=== PATIENT | female | born 1955 | race Caucasian/White ===

== ENCOUNTER 2018-01-23 02:30 | Emergency (ER) | payer MEDICAID ==
[~2018-01-23] VITALS: Ht 154.9 cm; Wt 83.0 kg
[~2018-01-23 02:30] MED LIST: ASPI81TA2 PO; ATEN-41 PO; DIPH25CA83 PO; FLUO40CA8 PO; GABA-531 PO; HYDR-4100 PO; HYDR25TA4 PO; IBUP-1969 PO; INSU100V32 SUBCUT; LOSA25TA3 PO; MECL-110 PO; NPH,100V SUBCUT; RANI150T8 PO; SIMV10TA2 PO; SIMV10TA6 PO
[2018-01-23 02:42] VITALS: BP_SYST 143
[2018-01-23] MEDS ORDERED: METF1000 PO (02:55)
[2018-01-23] MEDS ORDERED: LOSA50TA3 PO (02:55)
[2018-01-23] MEDS ORDERED: GLIP10TA11 PO (02:55)
[2018-01-23] MEDS ORDERED: LIP40 PO (02:55)
[2018-01-23] MEDS ORDERED: SITA100T7 PO (02:55)
[2018-01-23] MEDS ORDERED: ARIP2TAB9 PO (02:59)
[2018-01-23] MEDS ORDERED: ESCI10TA PO (02:59)
[2018-01-23] MEDS ORDERED: NS 500 ML IV ONE (03:00)
[2018-01-23] MEDS ORDERED: NACL 0.9% 500 ML IV ONE (03:00)
[2018-01-23] MEDS ORDERED: PANTOPRAZOLE SODIUM 40 MG/VIAL (PROTONIX) IVP ONE (03:00)
[2018-01-23] MEDS ORDERED: ONDANSETRON HCL 4 MG/2 ML VIAL IVP ONE (03:00)
[2018-01-23] MEDS ORDERED: KETOROLAC TROMETHAMINE 30 MG VIAL IVP ONE (03:00)
[2018-01-23 03:31] LABS: BASOPHILS # (AUTO) 0.1 K/uL (0.0-0.2); BASOPHILS % (AUTO) 0.5 % (0.0-2.0); EOSINOPHILS # (AUTO) 0.2 K/uL (0.0-0.4); EOSINOPHILS % (AUTO) 1.7 % (0.0-4.0); HEMATOCRIT 42.3 % (36-48); HEMOGLOBIN 14.6 g/dL (12.0-16.0); LYMPHOCYTES # (AUTO) 1.5 K/uL (1.0-5.5); LYMPHOCYTES % (AUTO) 12.9 % (20.5-51.5); MEAN CORPUSCULAR HEMOGLOBIN 31 pg (27-31); MEAN CORPUSCULAR HGB CONC 35 % (32-36); MEAN CORPUSCULAR VOLUME 89 fL (79.0-98.0); MONOCYTES # (AUTO) 0.7 K/uL (0.0-1.0); MONOCYTES % (AUTO) 6.1 % (1.7-9.3); NEUTROPHILS # (AUTO) 9.4 K/uL (1.8-7.7); NEUTROPHILS % (AUTO) 78.8 % (40.0-70.0); PLATELET COUNT (AUTO) 330 K/uL (130-430); RED BLOOD CELL COUNT(AUTO) 4.78 MIL/uL (4.2-6.2); RED CELL DISTRIBUTION WIDTH 12.5 % (9.0-15.0); WHITE BLOOD COUNT (AUTO) 11.9 K/uL (4.8-10.8)
[2018-01-23 03:44] LABS: CALCIUM 9.9 mg/dL (8.4-11.0); CREATININE 1.54 mg/dL (0.55-1.30); POTASSIUM 3.4 mmol/L (3.5-5.1)
[2018-01-23 03:50] LABS: ALBUMIN 3.7 g/dL (3.4-4.8); TOTAL BILIRUBIN 0.7 mg/dL (0.0-1.0)
[2018-01-23] MEDS ORDERED: NACL 0.9% 2,000 ML IV ONE (04:15)
[2018-01-23] MEDS ORDERED: KCL 20 mEq in 100 mL (PREMIX) 100 ML IV ONE (04:45)
[2018-01-23] MEDS ORDERED: INSULIN REGULAR, HUMAN 10 UNITS/0.1 ML INJ IVP ONE (04:45)
[2018-01-23] MEDS ORDERED: POTASSIUM CHLORIDE 10 MEQ TAB.PRT.SR PO ONE (05:15)
[2018-01-23 06:24] VITALS: BP_SYST 134
== END 2018-01-23 06:34 | disposition home or self-care (01) ==
LOC: SED 02:30
DX: E11.65 Type 2 diabetes mellitus with hyperglycemia (principal); J45.909 Unspecified asthma, uncomplicated; I12.9 Hypertensive chronic kidney disease with stage 1 through stage 4 chronic kidney disease, or unspecified chronic kidney disease; N18.9 Chronic kidney disease, unspecified; Z91.041 Radiographic dye allergy status
CPT/HCPCS: 36415; 71045; 74176; 80053; 83605; 83690; 84484; 85025; 85610; 85730; 87040; 93005; 96360; 96361; 96365; 96375; 99285; C9113; J1885; J2405; J3480; J7030; J1815

== ENCOUNTER 2018-06-07 04:54 | Inpatient (IN) | payer MEDICAID ==
[~2018-06-07] VITALS: Ht 154.9 cm; Wt 77.6 kg
[~2018-06-07 04:54] MED LIST changes: +ARIP2TAB3 PO; -ASPI81TA2 PO; -ATEN-41 PO; -DIPH25CA83 PO; +ESCI10TA PO; -FLUO40CA8 PO; -HYDR-4100 PO; -IBUP-1969 PO; -INSU100V32 SUBCUT; +LIP40 PO; -LOSA25TA3 PO; +LOSA50TA3 PO; -MECL-110 PO; +METF1000 PO; -NPH,100V SUBCUT; -RANI150T8 PO; -SIMV10TA2 PO; -SIMV10TA6 PO; +SITA100T11 PO
[2018-06-07 05:00] VITALS: BP_SYST 131
--- NOTE | 2018-06-07 05:00 | NUR ---
Patient to ER bed 8 to gown for evaluation. Side rails up. Report given to JARAD CAREY.
--- NOTE | 2018-06-07 05:05 | NUR ---
Patient AOx4, ambulatory, presents to ER with complaint of rapid heart rate x1 hour ago. Patient states she feels dizzy. Patient states she medicated with Cardizem 180mg but was ineffective. HR 178 at this time. Patient has hx of A-fib, HTN, depression, bipolar, manic depression, DM, CKD, asthma, and hypothyroidism.
--- NOTE | 2018-06-07 05:10 | NUR ---
ER MD Juarez at bedside for medical evaluation.
[2018-06-07] MEDS ORDERED: NACL 0.9% 1,000 ML IV ONE ×2 (05:12→06:30)
[2018-06-07] MEDS ORDERED: DILTIAZEM HCL 25 MG/5 ML VIAL IVP ONE ×2 (05:15→06:15)
[2018-06-07] MEDS ORDERED: ASPIRIN 81 MG TAB.CHEW PO ONE (05:15)
--- NOTE | 2018-06-07 05:30 | NUR ---
# 20 gauge angiocath placed to LAC. Use of asceptic technique. Opsite placed over site. Blood return noted. Flushed with 10 cc of normal saline. No evidence of infiltration noted. Patient tolerated well.
[2018-06-07 06:20] LABS: ANION GAP 10 (5-15); BASOPHILS # (AUTO) 0.1 K/uL (0.0-0.2); BASOPHILS % (AUTO) 0.8 % (0.0-2.0); CALCIUM 9.5 mg/dL (8.4-11.0); CHLORIDE 89 mmol/L (98-107); CREATININE 1.84 mg/dL (0.55-1.30); EOSINOPHILS # (AUTO) 0.1 K/uL (0.0-0.4); EOSINOPHILS % (AUTO) 1.9 % (0.0-4.0); HEMATOCRIT 41.3 % (36-48); HEMOGLOBIN 13.7 g/dL (12.0-16.0); LYMPHOCYTES # (AUTO) 2.9 K/uL (1.0-5.5); LYMPHOCYTES % (AUTO) 36.9 % (20.5-51.5); MEAN CORPUSCULAR HEMOGLOBIN 30 pg (27-31); MEAN CORPUSCULAR HGB CONC 33 % (32-36); MEAN CORPUSCULAR VOLUME 92 fL (79.0-98.0); MONOCYTES # (AUTO) 0.7 K/uL (0.0-1.0); MONOCYTES % (AUTO) 8.9 % (1.7-9.3); NEUTROPHILS % (AUTO) 51.5 % (40.0-70.0); PLATELET COUNT (AUTO) 423 K/uL (130-430); POTASSIUM 3.4 mmol/L (3.5-5.1); RED BLOOD CELL COUNT(AUTO) 4.52 MIL/uL (4.2-6.2); RED CELL DISTRIBUTION WIDTH 11.8 % (9.0-15.0); SODIUM SERUM 127 mmol/L (136-145); UREA NITROGEN, BLOOD 23 mg/dL (8-21); WHITE BLOOD COUNT (AUTO) 7.8 K/uL (4.8-10.8)
[2018-06-07 06:26] LABS: PROTHROMBIN TIME 9.9 SECS (9.5-12.5)
[2018-06-07] MEDS ORDERED: INSULIN REGULAR, HUMAN 10 UNITS/0.1 ML INJ IVP ONE (06:30)
[2018-06-07 06:32] LABS: ALANINE AMINOTRANSFERASE 24 U/L (12-78); ALBUMIN 3.5 g/dL (3.4-4.8); ASPARTATE AMINOTRANSFERASE 13 U/L (10-37); GFR AFRICAN AMERICAN 36 mL/min (>90); TOTAL BILIRUBIN 0.5 mg/dL (0.0-1.0)
[2018-06-07 06:33] LABS: GLUCOSE 765 mg/dL (70-99)
--- NOTE | 2018-06-07 07:00 | NUR ---
End of life care decisions discussed with patient by Dr. Juarez. Opportunity for questions and concerns addressed. Patient's code status is FULL CODE, paperwork completed and placed in chart.
[2018-06-07] MEDS ORDERED: LOSA25TA3 PO (07:12)
[2018-06-07] MEDS ORDERED: DIPH25CA83 PO (07:12)
[2018-06-07] MEDS ORDERED: LEVO25TA7 PO (07:12)
[2018-06-07] MEDS ORDERED: DILT180C69 PO (07:12)
[2018-06-07] MEDS ORDERED: GLIP-214 PO (07:12)
[2018-06-07] MEDS ORDERED: ARIP10TA9 PO (07:12)
[2018-06-07] MEDS ORDERED: RANI-362 PO (07:12)
[2018-06-07] MEDS ORDERED: BUSP10TA3 PO (07:12)
[2018-06-07] MEDS ORDERED: DIPH50CA38 PO (07:12)
[2018-06-07] MEDS ORDERED: ASA81 PO (07:12)
[2018-06-07] MEDS ORDERED: SITA100T11 PO (07:12)
[2018-06-07] MEDS ORDERED: ESCI10TA PO (07:12)
--- NOTE | 2018-06-07 07:12 | NUR ---
Medication reconciliation completed with information provided by patient. Any prior medication reconciliation on file was reviewed and corrected.
--- NOTE | 2018-06-07 07:13 | NUR ---
Patient will be admitted to care of Dr. Angel. Admitted to Tele unit. Will go to room 135. Belongings list completed. Summary report printed. Report will be given at bedside.
[2018-06-07 07:24] VITALS: BP_SYST 134
--- NOTE | 2018-06-07 07:27 | NUR ---
Admission: Received from ER on a gurney wit the diagnosis of uncontrolled diabetes and rapid heart rate. Able to transfer from [facility] to the bed with steady gait . Denies dizziness. Blood sugar recheck at the bedside with BS= 524. Oriented to room routine, call light within reach.
--- NOTE | 2018-06-07 07:48 | NUR ---
CONSULT CARDIOLOGY RAPID HEART BEAT DR FELIPE [phone] S/W GENARO DERAS @ [phone]
--- NOTE | 2018-06-07 08:30 | NUR ---
INITIAL NOTE RECEIVED PT IN BED, NO S/S OF DISTRESS OR SOB NOTED, PT HAS NO C/O PAIN AT THIS TIME, PT IN STABLE CONDITION, PT AAOX4, VERBAL. IV CATHETER PATENT, NO SIGNS OF INFECTION OR INFILTRATION NOTED. SAFETY PRECAUTIONS IN PLACE, BED AT LOWEST POSITION, CALL LIGHT WITHIN REACH, FALL PRECAUTIONS IN PLACE, WILL CONTINUE TO MONITOR PT FOR ANY CHANGES. Addendum: 06/07/18 at 1048 by Nataliya Melgoza RN PT ASYMPTOMATIC, NO SIGNS OF HYPERGLYCEMIA OR HYPOGLYCEMIA NOTED.
[2018-06-07] MEDS ORDERED: INSULIN REGULAR, HUMAN 100 UNITS/ML, 10 ML VIAL SUBCUT ONE (09:15)
[2018-06-07] MEDS ORDERED: DEXTROSE 50% JECT 50 ML DISP.SYRIN IVP PRN (09:45)
[2018-06-07] MEDS ORDERED: NACL 0.9% 1,000 ML IV SCH (09:45)
[2018-06-07] MEDS ORDERED: busPIRone HCL 5 MG TABLET PO ONE (10:00)
--- NOTE | 2018-06-07 10:15 | NUR ---
ROUNDS PT IN BED, NO S/S OF DISTRESS OR SOB NOTED, PT HAS NO C/O PAIN AT THIS TIME, PT IN STABLE CONDITION, PT RESTING COMFORTABLY, WILL CONTINUE TO MONITOR PT FOR ANY CHANGES.
[2018-06-07] MEDS: NACL 0.9% 1,000 ML IV SCH ×3 (10:18→23:41)
[2018-06-07 11:27] VITALS: BP_SYST 144
[2018-06-07] MEDS: INSULIN REGULAR, HUMAN 100 UNITS/ML, 10 ML VIAL (novoLIN R) SUBCUT PRN ×3 (11:44→23:45)
--- NOTE | 2018-06-07 11:45 | NUR ---
CALL DR MARGIE PÉREZ TO NOTIFY HIM OF PATIENT'S BLOOD GLUCOSE OF [phone], AWAITING CALL BACK, PT ASYMPTOMATIC, NO SIGNS OF HYPERGLYCEMIA. Addendum: 06/07/18 at 1257 by Nataliya Melgoza RN CALLED BACK AND GAVE NEW ORDERS
--- NOTE | 2018-06-07 13:21 | NUR ---
INSULIN PER PT SHE USED TO TAKE NOVOLIN AND HUMALOG, PT RECEIVED THIS INFORMATION FROM HER PCP. PT DOES NOT REMEMBER HOW MANY UNITS SHE WAS ON.
[2018-06-07 15:17] VITALS: BP_SYST 132
[2018-06-07] MEDS: GABAPENTIN 300 MG CAPSULE PO SCH ×2 (15:33→21:48)
--- NOTE | 2018-06-07 18:44 | NUR ---
CLOSING NOTE PT IN BED, NO S/S OF DISTRESS OR SOB NOTED, PT HAS NO C/O PAIN AT THIS TIME, PT IN STABLE CONDITION, PT AAOX4, VERBAL. IV CATHETER PATENT, NO SIGNS OF INFECTION OR INFILTRATION NOTED. SAFETY PRECAUTIONS IN PLACE, BED AT LOWEST POSITION, CALL LIGHT WITHIN REACH, FALL PRECAUTIONS IN PLACE, WILL ENDORSE CARE OF PT TO INCOMING NURSE. PT ASYMPTOMATIC, NO SIGNS OF HYPERGLYCEMIA OR HYPOGLYCEMIA NOTED.
[2018-06-07 20:00] VITALS: BP_SYST 128
--- NOTE | 2018-06-07 20:00 | NUR ---
Initial PM Note Pt was received lying in bed fully awake, alert and oriented x4. Speech is clear and pt is able to make her needs known. No c/o pain or discomfort. Skin is warm and dry to touch. No signs or symptoms of hypoglycemia or hyperglycemia noted. IVF of NS is infusing well in LAC at 150ml/hr without any signs of infiltration. Fall and safety precautions are in place. Pt was instructed to call for assistance as needed and pt verbalized understanding. Call light is with pt and bed is in the lowest and locked positions. All bedside items are within pt's reach. Will continue to monitor pt.
[2018-06-07] MEDS ORDERED: ARIPiprazole 5 MG TAB PO SCH (21:00)
--- NOTE | 2018-06-07 21:00 | NUR ---
HS Snacks Pt was given HS Snacks of 2 cups chocolate pudding and 2 cups apple juice per her request. Pt consumed 100%. Skin remains warm and dry to touch. IVF is infusing well in LAC. Will continue to monitor pt.
[2018-06-07 21:17] LABS: BARBITURATE, URINE NEGATIVE (NEG <=200); BENZODIAZEPINE, URINE NEGATIVE (NEG <=150); CANNABINOID, URINE NEGATIVE (NEG <=50); COCAINE, URINE NEGATIVE (NEG <=150); METHAMPHETAMINES SCREEN,URINE POSITIVE (NEG <=500); OPIATE, URINE NEGATIVE (NEG <=100); PHENCYCLIDINE SCREEN,URINE NEGATIVE (NEG <=25); UR TRICYCLIC ANTIDEPRESSANTS NEGATIVE (NEG <=300); URINE AMPHETAMINE POSITIVE (NEG <=500); URINE METHADONE NEGATIVE (NEG <=200); URINE OXYCODONE SCREEN NEGATIVE (NEG <=100); URINE PROPOXYPHENE SCREEN NEGATIVE (NEG <=300)
[2018-06-07] MEDS: busPIRone HCL 5 MG TABLET PO SCH (21:47)
[2018-06-07] MEDS: glipiZIDE XL 5 MG TAB ( GLUCOTROL XL) PO SCH (21:48)
[2018-06-07] MEDS: CITALOPRAM HYDROBROMIDE 20 MG TABLET PO SCH (21:48)
--- NOTE | 2018-06-07 21:48 | NUR ---
HS Medications/ Bed Alarm Refusal Scheduled HS medications were given. Due to potential drowsiness from the medications, pt was offered bed alarm, but pt declined. Call light is with pt and all bedside items are within pt's reach. IVF is infusing well in [facility]. Will continue to monitor pt.
--- NOTE | 2018-06-07 23:45 | NUR ---
Blood Sugar Accucheck 342 and 8 units Regular Insulin was given SQ. Skin remains warm and dry to touch. IVF is infusing well in LAC. Call light is with pt. Will continue to monitor pt.
[2018-06-07 23:50] VITALS: BP_SYST 123
--- NOTE | 2018-06-08 02:00 | NUR ---
Rounds Pt is sleeping comfortably in bed. IVF is infusing well in [facility]. Fall and safety precautions are in place. Call light is with pt.
--- NOTE | 2018-06-08 04:00 | NUR ---
Rounds Pt is sleeping comfortably in bed without any respiratory distress noted. IVF is infusing well in [facility]. Fall and safety precautions are in place. Call light is with pt. Will continue to monitor pt.
[2018-06-08] MEDS: INSULIN REGULAR, HUMAN 100 UNITS/ML, 10 ML VIAL (novoLIN R) SUBCUT PRN ×3 (05:26→17:43)
[2018-06-08] MEDS: NACL 0.9% 1,000 ML IV SCH (05:45)
--- NOTE | 2018-06-08 06:30 | NUR ---
Closing Note Pt is sleeping comfortably in bed and no respiratory distress noted. All pt's needs were attended to. No fall or injury noted this shift. Call light is with pt and IVF is infusing well in [facility]. Will endorse to day shift nurse.
[2018-06-08] MEDS ORDERED: LEVOTHYROXINE SODIUM 0.025 MG TABLET PO SCH (07:00)
[2018-06-08 07:33] LABS: ALBUMIN 2.6 g/dL (3.4-4.8); CALCIUM 8.6 mg/dL (8.4-11.0); CREATININE 0.92 mg/dL (0.55-1.30); POTASSIUM 3.2 mmol/L (3.5-5.1); TOTAL BILIRUBIN 0.3 mg/dL (0.0-1.0)
[2018-06-08 08:00] VITALS: BP_SYST 123
--- NOTE | 2018-06-08 08:00 | NUR ---
Note Pt lying in bed drowsy, but easily arousable at this time and answers questions appropriately. No SOB/resp distress or pain/discomfort noted at this time. IV left AC intact and patent infusing IVF's well. No needs noted. Call light within reach.
[2018-06-08 08:33] LABS: BASOPHILS # (AUTO) 0.1 K/uL (0.0-0.2); BASOPHILS % (AUTO) 1.8 % (0.0-2.0); EOSINOPHILS # (AUTO) 0.4 K/uL (0.0-0.4); EOSINOPHILS % (AUTO) 4.9 % (0.0-4.0); HEMOGLOBIN 10.7 g/dL (12.0-16.0); LYMPHOCYTES # (AUTO) 3.3 K/uL (1.0-5.5); LYMPHOCYTES % (AUTO) 45.8 % (20.5-51.5); MEAN CORPUSCULAR HEMOGLOBIN 29 pg (27-31); MEAN CORPUSCULAR HGB CONC 33 % (32-36); MEAN CORPUSCULAR VOLUME 90 fL (79.0-98.0); MONOCYTES # (AUTO) 0.5 K/uL (0.0-1.0); MONOCYTES % (AUTO) 7.3 % (1.7-9.3); NEUTROPHILS # (AUTO) 2.9 K/uL (1.8-7.7); NEUTROPHILS % (AUTO) 40.2 % (40.0-70.0); PLATELET COUNT (AUTO) 332 K/uL (130-430); RED BLOOD CELL COUNT(AUTO) 3.65 MIL/uL (4.2-6.2); WHITE BLOOD COUNT (AUTO) 7.3 K/uL (4.8-10.8)
[2018-06-08] MEDS ORDERED: ASPIRIN 81 MG TAB.CHEW PO SCH (09:00)
[2018-06-08] MEDS ORDERED: DILTIAZEM HCL 180 MG CAP.SR.24H PO SCH ×2 (09:00)
[2018-06-08] MEDS ORDERED: ATORVASTATIN 20 MG TABLET PO SCH (09:00)
[2018-06-08] MEDS: busPIRone HCL 5 MG TABLET PO SCH (09:01)
[2018-06-08] MEDS: glipiZIDE XL 5 MG TAB ( GLUCOTROL XL) PO SCH (09:02)
[2018-06-08] MEDS: GABAPENTIN 300 MG CAPSULE PO SCH ×2 (09:02→15:15)
[2018-06-08] MEDS: CITALOPRAM HYDROBROMIDE 20 MG TABLET PO SCH (09:02)
--- NOTE | 2018-06-08 11:00 | NUR ---
Note Pt still sleeping when she awakens she watches television. Pt denies any needs at this time. Call light within reach. Tele unit attached and intact all shift.
[2018-06-08 12:00] VITALS: BP_SYST 127
--- NOTE | 2018-06-08 14:40 | NUR ---
Note Pt out in the hallway ambulating with steady gait. No SOB/resp distress or pain/discomfort or dizziness noted at this time. No needs noted. Call light within reach.
[2018-06-08 16:00] VITALS: BP_SYST 129
--- NOTE | 2018-06-08 17:27 | NUR ---
ATTENDING MD DR HANSON WAS CALLED, RE: REQUEST OF PT TO BE DISCHARGED. SPOKE TO GENARO
[2018-06-08 17:55] VITALS: BP_SYST 128
--- NOTE | 2018-06-08 18:00 | NUR ---
Note Received discharge order from Dr Angel. Pt was notified and discharge paperwork started. Pt's tele unit was dc'd and returned to lab animal technician. Pt sitting up in BS chair and eating her dinner. No needs noted. Call light within reach.
--- NOTE | 2018-06-08 18:25 | NUR ---
Note Pt received discharge paperwork and her home medications from main pharmacy. Questions/concerns were answered. Pt dressed in street clothes and packed all belongings. Pt checked side table and drawers for belongings. Pt denies any SOB/resp distress or pain/discomfort or dizziness/weakness when ambulating. Pt stable. Left AC IV was dc'd. Site benign. No swelling/drainage or tenderness at site noted at this time. Pt off the floor to private car with all her belongings and discharge paperwork.
== END 2018-06-08 18:25 | disposition home or self-care (01) | DRG 201 ==
LOC: SED 04:54 → STU 07:10
PROVIDERS: ADMIT Internal Medicine Hospice and Palliative Medicine; ATTEND Internal Medicine Hospice and Palliative Medicine
DX: I47.1 Supraventricular tachycardia (principal); N17.0 Acute kidney failure with tubular necrosis; E11.00 Type 2 diabetes mellitus with hyperosmolarity without nonketotic hyperglycemic-hyperosmolar coma (NKHHC); E11.22 Type 2 diabetes mellitus with diabetic chronic kidney disease; E11.42 Type 2 diabetes mellitus with diabetic polyneuropathy; I48.91 Unspecified atrial fibrillation; E86.0 Dehydration; N18.4 Chronic kidney disease, stage 4 (severe); F15.10 Other stimulant abuse, uncomplicated; E11.65 Type 2 diabetes mellitus with hyperglycemia; I12.9 Hypertensive chronic kidney disease with stage 1 through stage 4 chronic kidney disease, or unspecified chronic kidney disease; F32.9 Major depressive disorder, single episode, unspecified; F41.9 Anxiety disorder, unspecified; J45.909 Unspecified asthma, uncomplicated; Z90.49 Acquired absence of other specified parts of digestive tract; Z79.84 Long term (current) use of oral hypoglycemic drugs; Z79.899 Other long term (current) drug therapy; Z91.041 Radiographic dye allergy status; Z82.49 Family history of ischemic heart disease and other diseases of the circulatory system; Z83.3 Family history of diabetes mellitus
CPT/HCPCS: 36415; 71045; 80053; 80307; 82009-TC; 82962; 83036; 83605; 83880; 84443-TC; 84484; 85025; 85610-TC; 85730-TC; 87040-TC; 93005; 93306; 96361; 96374; 96375; 96376; 99291; J1815; J3490; J7030

== ENCOUNTER 2018-07-21 00:08 | Emergency (ER) | payer MEDICAID ==
[~2018-07-21] VITALS: Ht 154.9 cm; Wt 78.9 kg
[~2018-07-21 00:08] MED LIST changes: +ARIP10TA9 PO; -ARIP2TAB3 PO; +ASA81 PO; +BUSP10TA3 PO; +DILT180C69 PO; +DIPH25CA83 PO; +DIPH50CA38 PO; +GLIP-214 PO; -HYDR25TA4 PO; +LEVO25TA7 PO; +LOSA25TA3 PO; -LOSA50TA3 PO; +RANI-362 PO
[2018-07-21 00:12] VITALS: BP_SYST 151
[2018-07-21] MEDS ORDERED: NACL 0.9% 1,000 ML IV ONE ×2 (01:33→02:45)
[2018-07-21 01:56] LABS: BASOPHILS # (AUTO) 0.1 K/uL (0.0-0.2); BASOPHILS % (AUTO) 0.6 % (0.0-2.0); EOSINOPHILS # (AUTO) 0.4 K/uL (0.0-0.4); HEMATOCRIT 38.9 % (36-48); LYMPHOCYTES # (AUTO) 3.2 K/uL (1.0-5.5); LYMPHOCYTES % (AUTO) 34.1 % (20.5-51.5); MEAN CORPUSCULAR HEMOGLOBIN 30 pg (27-31); MEAN CORPUSCULAR HGB CONC 33 % (32-36); MEAN CORPUSCULAR VOLUME 90 fL (79.0-98.0); MONOCYTES # (AUTO) 0.6 K/uL (0.0-1.0); MONOCYTES % (AUTO) 6.7 % (1.7-9.3); NEUTROPHILS # (AUTO) 5.1 K/uL (1.8-7.7); NEUTROPHILS % (AUTO) 54.6 % (40.0-70.0); PLATELET COUNT (AUTO) 325 K/uL (130-430); RED BLOOD CELL COUNT(AUTO) 4.33 MIL/uL (4.2-6.2); RED CELL DISTRIBUTION WIDTH 11.6 % (9.0-15.0); WHITE BLOOD COUNT (AUTO) 9.4 K/uL (4.8-10.8)
[2018-07-21 01:58] LABS: INR 0.9 (0.8-1.2)
[2018-07-21 01:59] LABS: BILIRUBIN,URINE NEGATIVE (NEGATIVE); BLOOD, URINE NEGATIVE (NEGATIVE); CLARITY/URINE CLEAR (CLEAR); COLOR,URINE YELLOW (YELLOW); GLUCOSE,URINE 3+ (NEGATIVE); KETONES,URINE NEGATIVE (NEGATIVE); LEUKOCYTE ESTERASE ,URINE NEGATIVE (NEGATIVE); NITRITE, URINE NEGATIVE (NEGATIVE); PH,URINE 5.5 (5.0-8.0); PROTEIN URINE NEGATIVE (NEGATIVE); UROBILINOGEN,URINE 0.2 (0.2-1.0)
[2018-07-21 02:03] LABS: CALCIUM 8.9 mg/dL (8.4-11.0); CREATININE 1.28 mg/dL (0.55-1.30); POTASSIUM 3.9 mmol/L (3.5-5.1)
[2018-07-21 02:04] LABS: ALBUMIN 3.5 g/dL (3.4-4.8); TOTAL BILIRUBIN 0.5 mg/dL (0.0-1.0)
[2018-07-21 02:18] LABS: BACTERIA,URINE RARE /HPF (None Seen); RBC,URINE 0-3 /HPF (0-3); WBC,URINE 0-3 /HPF (0-3)
[2018-07-21] MEDS ORDERED: INSULIN REGULAR, HUMAN 10 UNITS/0.1 ML INJ IVP ONE ×2 (02:45→04:30)
[2018-07-21 03:15] LABS: BARBITURATE, URINE NEGATIVE (NEG <=200); BENZODIAZEPINE, URINE NEGATIVE (NEG <=150); CANNABINOID, URINE NEGATIVE (NEG <=50); COCAINE, URINE NEGATIVE (NEG <=150); METHAMPHETAMINES SCREEN,URINE POSITIVE (NEG <=500); OPIATE, URINE NEGATIVE (NEG <=100); PHENCYCLIDINE SCREEN,URINE NEGATIVE (NEG <=25); UR TRICYCLIC ANTIDEPRESSANTS NEGATIVE (NEG <=300); URINE AMPHETAMINE POSITIVE (NEG <=500); URINE METHADONE NEGATIVE (NEG <=200); URINE OXYCODONE SCREEN NEGATIVE (NEG <=100); URINE PROPOXYPHENE SCREEN NEGATIVE (NEG <=300)
[2018-07-21 05:50] VITALS: BP_SYST 140
== END 2018-07-21 05:50 | disposition home or self-care (01) ==
LOC: SED 00:08
DX: E11.65 Type 2 diabetes mellitus with hyperglycemia (principal); E11.22 Type 2 diabetes mellitus with diabetic chronic kidney disease; I12.9 Hypertensive chronic kidney disease with stage 1 through stage 4 chronic kidney disease, or unspecified chronic kidney disease; N18.9 Chronic kidney disease, unspecified; F15.10 Other stimulant abuse, uncomplicated; F41.9 Anxiety disorder, unspecified; Z90.49 Acquired absence of other specified parts of digestive tract; Z91.041 Radiographic dye allergy status; Z79.82 Long term (current) use of aspirin; Z79.899 Other long term (current) drug therapy
CPT/HCPCS: 36415; 80053; 80307; 81000; 82550; 82962; 83690; 83880; 84484; 85025; 85379; 85610; 85730; 93005; 93971; 96374; 96376; 99285; J1815; J7030

== ENCOUNTER 2019-06-26 15:58 | Emergency (ER) | payer OTHER, MEDICAID ==
[~2019-06-26] VITALS: Ht 154.9 cm; Wt 83.9 kg
[~2019-06-26 15:58] MED LIST changes: +DILT180C67 PO; -DILT180C69 PO; -DIPH25CA83 PO; -GLIP-214 PO; +GLIP10TA21 PO; -METF1000 PO; -SITA100T11 PO
[2019-06-26 16:05] VITALS: BP_SYST 147
--- NOTE | 2019-06-26 16:05 | NUR ---
Patient to ER bed 06 to gown for evaluation. Side rails up. Report received from JARAD Rao
--- NOTE | 2019-06-26 16:10 | NUR ---
Pt brought self to ED. Pt awake/alert/oriented x4. Pt states that she has had R upper leg pain for approx 1 week. Pt states that she had been on new insuling prescribed by primary md but forgets the name. Pt denies that she has any chest pain, nausea, vomiting, diarrhea, shortness of breath. Pt denies any other medical complaint at this time. Pt sitting in bed, in position of comfort. VSS, will continue to monitor. Pt given warm blanket for comfort
--- NOTE | 2019-06-26 16:22 | NUR ---
SHAI Fox examining patient.
[2019-06-26] MEDS ORDERED: KETOROLAC TROMETHAMINE 60 MG/2 ML VIAL IM ONE (16:30)
[2019-06-26] MEDS ORDERED: KETOROLAC TROMETHAMINE 30 MG VIAL IVP ONE (16:30)
[2019-06-26] MEDS ORDERED: NACL 0.9% 1,000 ML IV ONE ×2 (16:30)
[2019-06-26 17:07] LABS: CALCIUM 9.5 mg/dL (8.4-11.0)
[2019-06-26 17:12] LABS: CREATININE 1.48 mg/dL (0.55-1.30); POTASSIUM 3.3 mmol/L (3.5-5.1)
--- NOTE | 2019-06-26 17:30 | NUR ---
Patient transported to radiology via Wheelchair, accompanied by ultrasound staff.
[2019-06-26] MEDS ORDERED: POTASSIUM CHLORIDE 20 MEQ TAB.PRT.SR PO ONE (17:45)
[2019-06-26] MEDS ORDERED: KCL 10 mEq in 50 mL (PREMIX) 50 ML IV ONE (17:45)
--- NOTE | 2019-06-26 17:57 | NUR ---
Returned from radiology, back to [facility].
[2019-06-26] MEDS ORDERED: INSULIN REGULAR, HUMAN 10 UNITS/0.1 ML INJ IVP ONE (18:15)
[2019-06-26 19:35] VITALS: BP_SYST 158
--- NOTE | 2019-06-26 19:35 | NUR ---
Patient given written and verbal discharge instructions and verbalizes understanding. ER DIRECTOR GLOBAL INTELLIGENCE Ruddy discussed with patient the results and treatment provided. Patient in stable condition. ID arm band removed. IV catheter removed intact and dressing applied, no active bleeding. Rx of Tramadol and Tylenol extra strength given. Patient educated on pain management and to follow up with PMD in 2-3 days for referral for MRI. Pain Scale 0/10 Opportunity for questions provided and answered. Medication side effect fact sheet provided.
== END 2019-06-26 19:35 | disposition home or self-care (01) ==
LOC: SED 15:58
DX: M79.651 Pain in right thigh (principal); J45.909 Unspecified asthma, uncomplicated; I48.91 Unspecified atrial fibrillation; K21.9 Gastro-esophageal reflux disease without esophagitis; I12.9 Hypertensive chronic kidney disease with stage 1 through stage 4 chronic kidney disease, or unspecified chronic kidney disease; E11.22 Type 2 diabetes mellitus with diabetic chronic kidney disease; N18.9 Chronic kidney disease, unspecified; F41.9 Anxiety disorder, unspecified; Z90.49 Acquired absence of other specified parts of digestive tract; Z91.041 Radiographic dye allergy status; Z79.899 Other long term (current) drug therapy
CPT/HCPCS: 36415; 73502; 80048; 82962; 93971; 96365; 96375; 99284; J1815; J1885; J3480; J7030

== ENCOUNTER 2019-07-09 17:45 | Emergency (ER) | payer OTHER, MEDICAID ==
[~2019-07-09] VITALS: Ht 154.9 cm; Wt 79.8 kg
[2019-07-09 17:59] VITALS: BP_SYST 127
[2019-07-09] MEDS ORDERED: MORPHINE 4 MG/ML INJ. SYRINGE IVP ONE (19:00)
== END 2019-07-09 19:20 | disposition left against medical advice (07) ==
LOC: SED 17:45
DX: M25.551 Pain in right hip (principal); I12.9 Hypertensive chronic kidney disease with stage 1 through stage 4 chronic kidney disease, or unspecified chronic kidney disease; E11.22 Type 2 diabetes mellitus with diabetic chronic kidney disease; N18.9 Chronic kidney disease, unspecified; J45.909 Unspecified asthma, uncomplicated; K21.9 Gastro-esophageal reflux disease without esophagitis; F41.9 Anxiety disorder, unspecified; Z88.8 Allergy status to other drugs, medicaments and biological substances; Z79.82 Long term (current) use of aspirin; Z79.899 Other long term (current) drug therapy
CPT/HCPCS: 96374; 99283; J2270

== ENCOUNTER 2019-07-29 09:35 | Emergency (ER) | payer OTHER, MEDICAID ==
[~2019-07-29] VITALS: Ht 154.9 cm; Wt 79.8 kg
[2019-07-29 10:20] VITALS: BP_SYST 112
--- NOTE | 2019-07-29 10:20 | NUR ---
Patient to ER bed 4 to gown for evaluation. Side rails up. Report given to JARAD Tate.
--- NOTE | 2019-07-29 10:21 | NUR ---
SHAI Schmitz at bedside examining patient.
--- NOTE | 2019-07-29 10:21 | NUR ---
Patient arrived via POV, AAOx4, and ambulatory with cane. Patient c/c of right hip pain radiating to groin. No numbness or tingling present to affected leg or foot. +2 PT DP pulses, mild intermittent swelling per patient. Patient states she has not had recent fall or injury and has hip pain periodically. She recently retired from being a daycare provider. Patient pain is rated at 10/10 and requesting pain medication prescription. Will continue to follow up and monitor.
[2019-07-29 10:40] VITALS: BP_SYST 112
--- NOTE | 2019-07-29 10:40 | NUR ---
Patient given written and verbal discharge instructions and verbalizes understanding. ER MD discussed with patient the results and treatment provided. Patient in stable condition. ID arm band removed. Rx of [place], Motrin given. Patient educated on pain management and to follow up with PMD. Pain Scale 10/10, unable to get a ride, requesting prescription only. Opportunity for questions provided and answered. Medication side effect fact sheet provided.
== END 2019-07-29 10:40 | disposition home or self-care (01) ==
LOC: SED 09:35
DX: M25.551 Pain in right hip (principal); J45.909 Unspecified asthma, uncomplicated; I10 Essential (primary) hypertension; E11.9 Type 2 diabetes mellitus without complications; K21.9 Gastro-esophageal reflux disease without esophagitis; F41.9 Anxiety disorder, unspecified; Z88.8 Allergy status to other drugs, medicaments and biological substances; Z79.82 Long term (current) use of aspirin; Z79.899 Other long term (current) drug therapy; Z76.0 Encounter for issue of repeat prescription
CPT/HCPCS: 99283

== ENCOUNTER 2019-08-16 13:44 | Emergency (ER) | payer OTHER, MEDICAID ==
[~2019-08-16] VITALS: Ht 154.9 cm; Wt 79.4 kg
[2019-08-16 13:49] VITALS: BP_SYST 116
[2019-08-16] MEDS ORDERED: HYDROcodone/ACETAMIN 7.5-325 MG TAB PO ONE (14:00)
--- NOTE | 2019-08-16 14:22 | NUR ---
Patient to ER bed 3 to gown for evaluation. Side rails up. Report given to JARAD Bearden.
--- NOTE | 2019-08-16 14:22 | NUR ---
Patient is awake, alert, and oriented x4. Patient states she was recently diagnosed with DJD and her right hip pain has been coming and going. She has had increased right hip pain since last night, taking ibuprofen with no relief.
--- NOTE | 2019-08-16 14:24 | NUR ---
ER SAQIB Anders examining patient.
[2019-08-16 14:55] VITALS: BP_SYST 114
--- NOTE | 2019-08-16 14:55 | NUR ---
Patient given written and verbal discharge instructions and verbalizes understanding. ER MD discussed with patient the results and treatment provided. Patient in stable condition. ID arm band removed. Rx of norco 5-325, motrin 600mg, docusate sodium 100mg given. Patient educated on pain management and to follow up with PMD. Pain Scale 0/10. Opportunity for questions provided and answered. Medication side effect fact sheet provided.
== END 2019-08-16 14:55 | disposition home or self-care (01) ==
LOC: SED 13:44
DX: M25.551 Pain in right hip (principal); J45.909 Unspecified asthma, uncomplicated; E11.22 Type 2 diabetes mellitus with diabetic chronic kidney disease; I13.10 Hypertensive heart and chronic kidney disease without heart failure, with stage 1 through stage 4 chronic kidney disease, or unspecified chronic kidney disease; N18.9 Chronic kidney disease, unspecified; K21.9 Gastro-esophageal reflux disease without esophagitis; F41.9 Anxiety disorder, unspecified; Z90.49 Acquired absence of other specified parts of digestive tract; Z79.899 Other long term (current) drug therapy; Z79.82 Long term (current) use of aspirin; Z88.8 Allergy status to other drugs, medicaments and biological substances
CPT/HCPCS: 99283

== ENCOUNTER 2019-08-20 11:59 | Emergency (ER) | payer OTHER, MEDICAID ==
[~2019-08-20] VITALS: Ht 154.9 cm; Wt 79.4 kg
[2019-08-20 12:00] VITALS: BP_SYST 129
--- NOTE | 2019-08-20 12:00 | NUR ---
BROUGHT BACK TO BED #7 AND TRIAGED. REPORT GIVEN TO JEFF
--- NOTE | 2019-08-20 12:05 | NUR ---
ER Dr. Dugan at bedside examining patient.
[2019-08-20] MEDS ORDERED: KETOROLAC TROMETHAMINE 60 MG/2 ML VIAL IM ONE (12:15)
--- NOTE | 2019-08-20 12:34 | NUR ---
Patient is awake, alert, and oriented x4. Patient reports falling on the 28th, complaining of pain to right knee. She denies nausea and vomiting.
[2019-08-20 12:46] VITALS: BP_SYST 129
--- NOTE | 2019-08-20 12:46 | NUR ---
Patient given written and verbal discharge instructions and verbalizes understanding. ER MD discussed with patient the results and treatment provided. Patient in stable condition. ID arm band removed. Patient educated on pain management and to follow up with PMD. Pain Scale 0/10. Opportunity for questions provided and answered. Medication side effect fact sheet provided.
== END 2019-08-20 12:46 | disposition home or self-care (01) ==
LOC: SED 11:59
DX: S83.91XA Sprain of unspecified site of right knee, initial encounter (principal); I12.9 Hypertensive chronic kidney disease with stage 1 through stage 4 chronic kidney disease, or unspecified chronic kidney disease; E11.22 Type 2 diabetes mellitus with diabetic chronic kidney disease; N18.9 Chronic kidney disease, unspecified; J45.909 Unspecified asthma, uncomplicated; K21.9 Gastro-esophageal reflux disease without esophagitis; I48.20 Chronic atrial fibrillation, unspecified; Z88.8 Allergy status to other drugs, medicaments and biological substances; Z79.82 Long term (current) use of aspirin; Z79.899 Other long term (current) drug therapy; W18.39XA Other fall on same level, initial encounter; Y93.89 Activity, other specified; Y92.89 Other specified places as the place of occurrence of the external cause; Y99.8 Other external cause status; Z90.49 Acquired absence of other specified parts of digestive tract
CPT/HCPCS: 73564; 96372; 99283; J1885; J7030

== ENCOUNTER 2019-09-30 14:37 | Emergency (ER) | payer OTHER, MEDICAID ==
[~2019-09-30] VITALS: Ht 154.9 cm; Wt 76.2 kg
[2019-09-30 14:53] VITALS: BP_SYST 110
[2019-09-30] MEDS ORDERED: NACL 0.9% 1,000 ML IV ONE ×2 (15:30→17:15)
[2019-09-30] MEDS ORDERED: INSULIN REGULAR, HUMAN 10 UNITS/0.1 ML INJ IVP ONE ×2 (15:30→17:15)
[2019-09-30] MEDS ORDERED: KETOROLAC TROMETHAMINE 15 MG VIAL IVP ONE (15:30)
[2019-09-30 15:59] LABS: BASOPHILS % (AUTO) 0.5 % (0.0-2.0); EOSINOPHILS # (AUTO) 0.2 K/uL (0.0-0.4); EOSINOPHILS % (AUTO) 2.6 % (0.0-4.0); HEMATOCRIT 35.6 % (36-48); HEMOGLOBIN 12.3 g/dL (12.0-16.0); LYMPHOCYTES # (AUTO) 2.1 K/uL (1.0-5.5); LYMPHOCYTES % (AUTO) 27.1 % (20.5-51.5); MEAN CORPUSCULAR HEMOGLOBIN 30 pg (27-31); MEAN CORPUSCULAR HGB CONC 35 % (32-36); MEAN CORPUSCULAR VOLUME 87 fL (79.0-98.0); MONOCYTES # (AUTO) 0.2 K/uL (0.0-1.0); MONOCYTES % (AUTO) 2.2 % (1.7-9.3); NEUTROPHILS # (AUTO) 5.3 K/uL (1.8-7.7); NEUTROPHILS % (AUTO) 67.6 % (40.0-70.0); PLATELET COUNT (AUTO) 369 K/uL (130-430); RED BLOOD CELL COUNT(AUTO) 4.08 MIL/uL (4.2-6.2); RED CELL DISTRIBUTION WIDTH 13.3 % (9.0-15.0); WHITE BLOOD COUNT (AUTO) 7.9 K/uL (4.8-10.8)
[2019-09-30 16:07] LABS: CALCIUM 9.1 mg/dL (8.4-11.0); CREATININE 2.16 mg/dL (0.55-1.30); POTASSIUM 3.3 mmol/L (3.5-5.1)
[2019-09-30 16:17] LABS: TOTAL BILIRUBIN 0.4 mg/dL (0.0-1.0)
[2019-09-30 16:18] LABS: ALBUMIN 3.2 g/dL (3.4-4.8)
[2019-09-30] MEDS ORDERED: ACETAMINOPHEN 500 MG TABLET PO ONE (17:30)
[2019-09-30 18:18] VITALS: BP_SYST 108
== END 2019-09-30 18:18 | disposition home or self-care (01) ==
LOC: SED 14:37
DX: E11.65 Type 2 diabetes mellitus with hyperglycemia (principal); J45.909 Unspecified asthma, uncomplicated; F41.9 Anxiety disorder, unspecified; Z79.84 Long term (current) use of oral hypoglycemic drugs; Z79.82 Long term (current) use of aspirin; Z79.899 Other long term (current) drug therapy; Z91.041 Radiographic dye allergy status
CPT/HCPCS: 36415; 80053; 82962; 85025; 93005; 96361; 96374; 96375; 96376; 99284; J1815; J1885; J7030

== ENCOUNTER 2019-10-29 00:35 | Emergency (ER) | payer OTHER, MEDICAID ==
[~2019-10-29] VITALS: Ht 154.9 cm; Wt 79.8 kg
[2019-10-29 00:40] VITALS: BP_SYST 121
[2019-10-29 01:29] LABS: BASOPHILS # (AUTO) 0.1 K/uL (0.0-0.2); BASOPHILS % (AUTO) 0.9 % (0.0-2.0); EOSINOPHILS # (AUTO) 0.2 K/uL (0.0-0.4); EOSINOPHILS % (AUTO) 2.9 % (0.0-4.0); HEMATOCRIT 33.1 % (36-48); HEMOGLOBIN 11.1 g/dL (12.0-16.0); LYMPHOCYTES # (AUTO) 3.1 K/uL (1.0-5.5); LYMPHOCYTES % (AUTO) 38.1 % (20.5-51.5); MEAN CORPUSCULAR HEMOGLOBIN 30 pg (27-31); MEAN CORPUSCULAR HGB CONC 34 % (32-36); MEAN CORPUSCULAR VOLUME 89 fL (79.0-98.0); MONOCYTES # (AUTO) 0.6 K/uL (0.0-1.0); MONOCYTES % (AUTO) 7.8 % (1.7-9.3); NEUTROPHILS # (AUTO) 4.1 K/uL (1.8-7.7); NEUTROPHILS % (AUTO) 50.3 % (40.0-70.0); PLATELET COUNT (AUTO) 386 K/uL (130-430); RED BLOOD CELL COUNT(AUTO) 3.72 MIL/uL (4.2-6.2); RED CELL DISTRIBUTION WIDTH 13.5 % (9.0-15.0); WHITE BLOOD COUNT (AUTO) 8.2 K/uL (4.8-10.8)
[2019-10-29 01:40] LABS: CREATININE 1.09 mg/dL (0.55-1.30); POTASSIUM 3.6 mmol/L (3.5-5.1)
[2019-10-29 01:44] LABS: PROTHROMBIN TIME 10.3 SECS (9.5-12.5)
[2019-10-29 01:45] LABS: ALBUMIN 3.1 g/dL (3.4-4.8); TOTAL BILIRUBIN 0.2 mg/dL (0.0-1.0)
[2019-10-29 02:10] VITALS: BP_SYST 109
== END 2019-10-29 02:10 | disposition home or self-care (01) ==
LOC: SED 00:35
DX: R07.89 Other chest pain (principal); I12.9 Hypertensive chronic kidney disease with stage 1 through stage 4 chronic kidney disease, or unspecified chronic kidney disease; E11.22 Type 2 diabetes mellitus with diabetic chronic kidney disease; N18.9 Chronic kidney disease, unspecified; I48.91 Unspecified atrial fibrillation; J45.909 Unspecified asthma, uncomplicated; F41.9 Anxiety disorder, unspecified; G47.00 Insomnia, unspecified; K21.9 Gastro-esophageal reflux disease without esophagitis; Z86.73 Personal history of transient ischemic attack (TIA), and cerebral infarction without residual deficits; Z90.49 Acquired absence of other specified parts of digestive tract; Z88.8 Allergy status to other drugs, medicaments and biological substances; Z79.82 Long term (current) use of aspirin; Z79.899 Other long term (current) drug therapy
CPT/HCPCS: 36415; 71045; 80053; 83880; 84484; 85025; 85379; 85610-TC; 85730-TC; 99284

== ENCOUNTER 2019-11-17 11:17 | Emergency (ER) | payer OTHER, MEDICAID ==
[~2019-11-17] VITALS: Ht 154.9 cm; Wt 74.8 kg
[2019-11-17 12:00] VITALS: BP_SYST 123
[2019-11-17] MEDS ORDERED: NACL 0.9% 1,000 ML IV ONE (12:03)
[2019-11-17] MEDS ORDERED: ONDANSETRON HCL 4 MG/2 ML VIAL IVP ONE (12:15)
[2019-11-17] MEDS ORDERED: LORazepam 2 MG/ML VIAL IVP ONE (12:30)
[2019-11-17 12:47] LABS: BASOPHILS # (AUTO) 0.1 K/uL (0.0-0.2); EOSINOPHILS # (AUTO) 0.4 K/uL (0.0-0.4); EOSINOPHILS % (AUTO) 4.4 % (0.0-4.0); HEMATOCRIT 36.4 % (36-48); HEMOGLOBIN 12.1 g/dL (12.0-16.0); LYMPHOCYTES # (AUTO) 3.5 K/uL (1.0-5.5); LYMPHOCYTES % (AUTO) 34.6 % (20.5-51.5); MEAN CORPUSCULAR HEMOGLOBIN 30 pg (27-31); MEAN CORPUSCULAR HGB CONC 33 % (32-36); MEAN CORPUSCULAR VOLUME 89 fL (79.0-98.0); MONOCYTES # (AUTO) 0.6 K/uL (0.0-1.0); MONOCYTES % (AUTO) 6.2 % (1.7-9.3); NEUTROPHILS # (AUTO) 5.4 K/uL (1.8-7.7); NEUTROPHILS % (AUTO) 53.8 % (40.0-70.0); PLATELET COUNT (AUTO) 443 K/uL (130-430); RED BLOOD CELL COUNT(AUTO) 4.07 MIL/uL (4.2-6.2); RED CELL DISTRIBUTION WIDTH 13.3 % (9.0-15.0); WHITE BLOOD COUNT (AUTO) 10.1 K/uL (4.8-10.8)
[2019-11-17 12:57] LABS: CREATININE 1.34 mg/dL (0.55-1.30)
[2019-11-17 13:02] LABS: ALBUMIN 3.7 g/dL (3.4-4.8); TOTAL BILIRUBIN 0.4 mg/dL (0.0-1.0)
[2019-11-17 14:41] LABS: BILIRUBIN,URINE NEGATIVE (NEGATIVE); BLOOD, URINE NEGATIVE (NEGATIVE); CLARITY/URINE CLEAR (CLEAR); COLOR,URINE YELLOW (YELLOW); GLUCOSE,URINE NEGATIVE (NEGATIVE); KETONES,URINE NEGATIVE (NEGATIVE); LEUKOCYTE ESTERASE ,URINE NEGATIVE (NEGATIVE); NITRITE, URINE NEGATIVE (NEGATIVE); PH,URINE 7.5 (5.0-8.0); PROTEIN URINE NEGATIVE (NEGATIVE); UROBILINOGEN,URINE 0.2 (0.2-1.0)
[2019-11-17] MEDS ORDERED: MAGNESIUM CITRATE 300 ML ORAL SOLUTION PO ONE (15:45)
[2019-11-17 15:55] VITALS: BP_SYST 142
== END 2019-11-17 15:55 | disposition home or self-care (01) ==
LOC: SED 11:17
DX: K59.00 Constipation, unspecified (principal); R11.2 Nausea with vomiting, unspecified; K85.90 Acute pancreatitis without necrosis or infection, unspecified; I13.10 Hypertensive heart and chronic kidney disease without heart failure, with stage 1 through stage 4 chronic kidney disease, or unspecified chronic kidney disease; E11.22 Type 2 diabetes mellitus with diabetic chronic kidney disease; N18.9 Chronic kidney disease, unspecified; F41.9 Anxiety disorder, unspecified; G47.00 Insomnia, unspecified; J45.909 Unspecified asthma, uncomplicated; I48.91 Unspecified atrial fibrillation; Z90.49 Acquired absence of other specified parts of digestive tract; Z79.899 Other long term (current) drug therapy; Z79.82 Long term (current) use of aspirin; Z88.8 Allergy status to other drugs, medicaments and biological substances
CPT/HCPCS: 36415; 74176; 80053; 81003; 83690; 85025; 96361; 96374; 96375; 99284; J2060; J2405; J7030

== ENCOUNTER 2021-04-01 05:41 | Inpatient (IN) | payer OTHER, MEDICAID, SELFPAY ==
[~2021-04-01] VITALS: Ht 154.9 cm; Wt 72.6 kg
[2021-04-01 05:48] VITALS: BP_SYST 158
[2021-04-01 06:08] LABS: BILIRUBIN,URINE NEGATIVE (NEGATIVE); BLOOD, URINE NEGATIVE (NEGATIVE); CLARITY/URINE SL CLOUDY (CLEAR); COLOR,URINE YELLOW (YELLOW); GLUCOSE,URINE 3+ (NEGATIVE); KETONES,URINE NEGATIVE (NEGATIVE); LEUKOCYTE ESTERASE ,URINE NEGATIVE (NEGATIVE); NITRITE, URINE NEGATIVE (NEGATIVE); PROTEIN URINE NEGATIVE (NEGATIVE); UROBILINOGEN,URINE 0.2 (0.2-1.0)
[2021-04-01] MEDS ORDERED: NACL 0.9% 1,000 ML IV ONE (06:15)
[2021-04-01 06:17] LABS: BACTERIA,URINE FEW /HPF (None Seen); RBC,URINE 0-3 /HPF (0-3); WBC,URINE 0-3 /HPF (0-3)
[2021-04-01 06:45] LABS: BASOPHILS # (AUTO) 0.1 K/uL (0.0-0.2); BASOPHILS % (AUTO) 0.8 % (0.0-2.0); EOSINOPHILS # (AUTO) 0.1 K/uL (0.0-0.4); EOSINOPHILS % (AUTO) 1.2 % (0.0-4.0); HEMATOCRIT 31.8 % (36-48); HEMOGLOBIN 10.5 g/dL (12.0-16.0); LYMPHOCYTES # (AUTO) 1.2 K/uL (1.0-5.5); LYMPHOCYTES % (AUTO) 11.6 % (20.5-51.5); MEAN CORPUSCULAR HEMOGLOBIN 30 pg (27-31); MEAN CORPUSCULAR HGB CONC 33 % (32-36); MEAN CORPUSCULAR VOLUME 91 fL (79.0-98.0); MONOCYTES # (AUTO) 0.7 K/uL (0.0-1.0); MONOCYTES % (AUTO) 6.8 % (1.7-9.3); NEUTROPHILS % (AUTO) 79.6 % (40.0-70.0); PLATELET COUNT (AUTO) 309 K/uL (130-430); RED BLOOD CELL COUNT(AUTO) 3.49 MIL/uL (4.2-6.2); RED CELL DISTRIBUTION WIDTH 14.1 % (9.0-15.0); WHITE BLOOD COUNT (AUTO) 10.1 K/uL (4.8-10.8)
[2021-04-01 06:57] LABS: CREATININE 1.61 mg/dL (0.55-1.30)
[2021-04-01 07:04] LABS: ALBUMIN 3.1 g/dL (3.4-4.8); TOTAL BILIRUBIN 0.2 mg/dL (0.0-1.0)
[2021-04-01 07:05] LABS: POTASSIUM 6.2 mmol/L (3.5-5.1)
[2021-04-01 07:10] LABS: BARBITURATE, URINE NEGATIVE (NEG <=200); BENZODIAZEPINE, URINE NEGATIVE (NEG <=150); CANNABINOID, URINE NEGATIVE (NEG <=50); COCAINE, URINE NEGATIVE (NEG <=150); METHAMPHETAMINES SCREEN,URINE POSITIVE (NEG <=500); OPIATE, URINE NEGATIVE (NEG <=100); PHENCYCLIDINE SCREEN,URINE NEGATIVE (NEG <=25); UR TRICYCLIC ANTIDEPRESSANTS NEGATIVE (NEG <=300); URINE AMPHETAMINE POSITIVE (NEG <=500); URINE METHADONE NEGATIVE (NEG <=200); URINE OXYCODONE SCREEN NEGATIVE (NEG <=100); URINE PROPOXYPHENE SCREEN NEGATIVE (NEG <=300)
[2021-04-01] MEDS ORDERED: INSULIN REGULAR, HUMAN 10 UNITS/0.1 ML INJ IVP ONE (07:15)
[2021-04-01] MEDS ORDERED: SODIUM BICARBONATE 8.4% JECT 50 MEQ/50 ML SYRINGE IVP ONE (07:15)
[2021-04-01] MEDS ORDERED: CALCIUM GLUCONATE 1 GM/10 ML VIAL IVP ONE (07:15)
[2021-04-01 07:20] LABS: C-REACTIVE PROTEIN QUANT 4.4 mg/dL (0-0.5)
[2021-04-01] MEDS ORDERED: MUPIROCIN 2% TOPICAL OINTMENT 22 GM NS PRN (07:45)
[2021-04-01] MEDS ORDERED: DEXTROSE 50% JECT 50 ML DISP.SYRIN IVP PRN (07:45)
[2021-04-01] MEDS ORDERED: LORazepam 2 MG/ML VIAL IVP PRN (07:45)
[2021-04-01] MEDS ORDERED: ZOLPIDEM TARTRATE 5 MG TABLET PO PRN (07:45)
[2021-04-01] MEDS ORDERED: MORPHINE 2 MG/ML INJ. SYRINGE IVP PRN ×2 (07:45)
[2021-04-01] MEDS ORDERED: POTASSIUM CHLORIDE 20 MEQ TAB.PRT.SR PO PRN (07:45)
[2021-04-01] MEDS ORDERED: DOCUSATE SODIUM 100 MG CAPSULE PO PRN (07:45)
[2021-04-01] MEDS ORDERED: MAGNESIUM SULFATE 50 ML IV PRN (07:45)
[2021-04-01] MEDS ORDERED: ONDANSETRON HCL 4 MG/2 ML VIAL IVP PRN (07:45)
[2021-04-01 08:54] VITALS: BP_SYST 117
[2021-04-01] MEDS: NACL 0.9% 1,000 ML IV SCH ×2 (09:13→16:56)
[2021-04-01] MEDS: HEPARIN SODIUM,PORCINE 5,000 UNITS/ML VIAL SUBCUT SCH ×2 (09:41→21:18)
[2021-04-01] MEDS ORDERED: INSULIN NPH/REGULAR 70-30, 100 UNITS/ML, 10 ML VIAL SUBCUT ONE (10:30)
[2021-04-01] MEDS: ACETAMINOPHEN 325 MG TABLET PO PRN (10:52)
[2021-04-01] MEDS: INSULIN LISPRO SLIDING SCALE 100 UNITS/ML VIAL (humaLOG) SUBCUT PRN ×3 (12:05→21:33)
[2021-04-01 14:09] VITALS: BP_SYST 139
[2021-04-01 14:30] LABS: CALCIUM 8.8 mg/dL (8.4-11.0); CREATININE 1.68 mg/dL (0.55-1.30); POTASSIUM 5.2 mmol/L (3.5-5.1)
[2021-04-01 14:35] LABS: ALBUMIN 2.8 g/dL (3.4-4.8); TOTAL BILIRUBIN 0.3 mg/dL (0.0-1.0)
[2021-04-01] MEDS: GABAPENTIN 300 MG CAPSULE PO SCH ×2 (15:14→21:16)
[2021-04-01] MEDS: INSULIN NPH/REGULAR 70-30, 100 UNITS/ML, 10 ML VIAL SUBCUT SCH (16:20)
[2021-04-01 16:28] VITALS: BP_SYST 117
[2021-04-01 20:00] VITALS: BP_SYST 109
[2021-04-01] MEDS ORDERED: ESCITALOPRAM OXALATE 10 MG TABLET PO SCH (21:00)
[2021-04-01] MEDS ORDERED: CITALOPRAM HYDROBROMIDE 20 MG TABLET PO SCH (21:00)
[2021-04-01] MEDS ORDERED: ARIPiprazole 5 MG TAB PO SCH (21:00)
[2021-04-01] MEDS: busPIRone HCL 5 MG TABLET PO SCH (21:17)
[2021-04-02 00:04] VITALS: BP_SYST 126
[2021-04-02] MEDS: ACETAMINOPHEN 325 MG TABLET PO PRN (03:28)
[2021-04-02] MEDS: NACL 0.9% 1,000 ML IV SCH ×2 (03:45→13:45)
[2021-04-02] MEDS: INSULIN NPH/REGULAR 70-30, 100 UNITS/ML, 10 ML VIAL SUBCUT SCH ×2 (06:20→17:46)
[2021-04-02] MEDS: INSULIN LISPRO SLIDING SCALE 100 UNITS/ML VIAL (humaLOG) SUBCUT PRN ×2 (06:22→17:47)
[2021-04-02] MEDS ORDERED: LEVOTHYROXINE SODIUM 0.025 MG TABLET PO SCH (07:00)
[2021-04-02 07:14] LABS: BASOPHILS # (AUTO) 0.1 K/uL (0.0-0.2); BASOPHILS % (AUTO) 1.2 % (0.0-2.0); EOSINOPHILS # (AUTO) 0.1 K/uL (0.0-0.4); EOSINOPHILS % (AUTO) 1.5 % (0.0-4.0); HEMATOCRIT 28.9 % (36-48); HEMOGLOBIN 9.5 g/dL (12.0-16.0); LYMPHOCYTES # (AUTO) 2.3 K/uL (1.0-5.5); LYMPHOCYTES % (AUTO) 24.8 % (20.5-51.5); MEAN CORPUSCULAR HEMOGLOBIN 30 pg (27-31); MEAN CORPUSCULAR HGB CONC 33 % (32-36); MEAN CORPUSCULAR VOLUME 91 fL (79.0-98.0); MONOCYTES # (AUTO) 0.9 K/uL (0.0-1.0); MONOCYTES % (AUTO) 9.4 % (1.7-9.3); NEUTROPHILS # (AUTO) 5.9 K/uL (1.8-7.7); NEUTROPHILS % (AUTO) 63.1 % (40.0-70.0); PLATELET COUNT (AUTO) 277 K/uL (130-430); RED BLOOD CELL COUNT(AUTO) 3.17 MIL/uL (4.2-6.2); RED CELL DISTRIBUTION WIDTH 13.6 % (9.0-15.0); WHITE BLOOD COUNT (AUTO) 9.3 K/uL (4.8-10.8)
[2021-04-02 07:29] LABS: CREATININE 1.41 mg/dL (0.55-1.30)
[2021-04-02] MEDS ORDERED: SODIUM POLYSTYRENE SULFONATE 15 GM/60 ML UDBTL PO ONE (08:30)
[2021-04-02 08:50] VITALS: BP_SYST 106
[2021-04-02] MEDS ORDERED: ASPIRIN 81 MG TAB.CHEW PO SCH (09:00)
[2021-04-02] MEDS ORDERED: DILTIAZEM HCL 180 MG CAP.SR.24H PO SCH (09:00)
[2021-04-02] MEDS ORDERED: TRINTELLIX 10MG TABLET PO SCH (09:00)
[2021-04-02] MEDS ORDERED: LOSARTAN POTASSIUM 50 MG TABLET (COZAAR) PO SCH (09:00)
[2021-04-02] MEDS ORDERED: ATORVASTATIN 20 MG TABLET PO SCH (09:00)
[2021-04-02 09:07] LABS: POTASSIUM 6.3 mmol/L (3.5-5.1)
[2021-04-02] MEDS: GABAPENTIN 300 MG CAPSULE PO SCH ×2 (09:07→15:00)
[2021-04-02] MEDS: busPIRone HCL 5 MG TABLET PO SCH (09:08)
[2021-04-02] MEDS: HEPARIN SODIUM,PORCINE 5,000 UNITS/ML VIAL SUBCUT SCH (09:24)
[2021-04-02 12:15] VITALS: BP_SYST 116
[2021-04-02] MEDS ORDERED: SODIUM POLYSTYRENE SULFONATE 15 GM/60 ML UDBTL GT ONE (13:00)
[2021-04-02 13:54] LABS: CREATININE 1.4 mg/dL (0.55-1.30); POTASSIUM 5.5 mmol/L (3.5-5.1)
[2021-04-03] MEDS ORDERED: TRINTELLIX 5 MG PO SCH (09:00)
== END 2021-04-02 19:15 | disposition left against medical advice (07) | DRG 637 ==
LOC: SED 05:41 → STU 07:42
PROVIDERS: ADMIT General Practice; ATTEND General Practice
DX: E11.65 Type 2 diabetes mellitus with hyperglycemia (principal); N17.0 Acute kidney failure with tubular necrosis; R65.10 Systemic inflammatory response syndrome (SIRS) of non-infectious origin without acute organ dysfunction; E87.1 Hypo-osmolality and hyponatremia; E87.2 Acidosis; E87.5 Hyperkalemia; F15.10 Other stimulant abuse, uncomplicated; Z20.822 Contact with and (suspected) exposure to COVID-19; E03.9 Hypothyroidism, unspecified; I10 Essential (primary) hypertension; Z79.4 Long term (current) use of insulin; Z91.041 Radiographic dye allergy status; Z79.899 Other long term (current) drug therapy; Z79.890 Hormone replacement therapy; Z91.14 Patient's other noncompliance with medication regimen
CPT/HCPCS: 36415; 71045; 76376; 80048; 80053; 80307; 81000; 82550; 82728; 82962; 83036; 83605; 83615; 83735; 83880; 84484; 85025; 85384; 86140; 87040-TC; 87086; 93005; 96361; 96374; 96375; 97163-GP; 99291; G0378; J0610; J1644; J1815; J2060; J2270

== ENCOUNTER 2021-06-28 01:18 | Emergency (ER) | payer OTHER, MEDICAID, SELFPAY ==
[~2021-06-28] VITALS: Ht 154.9 cm; Wt 73.0 kg
[2021-06-28 01:25] VITALS: BP_SYST 151
[2021-06-28] MEDS ORDERED: FAMOTIDINE PF 20 MG/2 ML VIAL IVP ONE (02:45)
[2021-06-28] MEDS ORDERED: PROCHLORPERAZINE EDISYLATE 10 MG/2 ML VIAL IVP ONE (02:45)
[2021-06-28] MEDS ORDERED: DIPHENHYDRAMINE INJ 50 MG/ML VIAL IVP ONE (02:45)
[2021-06-28] MEDS ORDERED: MORPHINE 2 MG/ML INJ. SYRINGE IVP ONE (02:45)
[2021-06-28] MEDS ORDERED: DEXAMETHASONE SOD PHOSPHATE 4 MG/ML VIAL IVP ONE (02:45)
[2021-06-28 03:12] LABS: CALCIUM 9.2 mg/dL (8.4-11.0); CREATININE 1.41 mg/dL (0.55-1.30)
[2021-06-28 03:18] LABS: ALBUMIN 3.3 g/dL (3.4-4.8); TOTAL BILIRUBIN 0.2 mg/dL (0.0-1.0)
[2021-06-28 03:37] LABS: ERYTHROCYTE SEDIMENTATION RATE 101 MM/HR (0-20)
[2021-06-28 05:10] VITALS: BP_SYST 126
[2021-06-28 05:30] LABS: BASOPHILS # (AUTO) 0.1 K/uL (0.0-0.2); BASOPHILS % (AUTO) 0.8 % (0.0-2.0); EOSINOPHILS # (AUTO) 0.5 K/uL (0.0-0.4); EOSINOPHILS % (AUTO) 5.1 % (0.0-4.0); HEMATOCRIT 30.1 % (36-48); HEMOGLOBIN 9.8 g/dL (12.0-16.0); LYMPHOCYTES % (AUTO) 32.3 % (20.5-51.5); MEAN CORPUSCULAR HEMOGLOBIN 30 pg (27-31); MEAN CORPUSCULAR HGB CONC 33 % (32-36); MEAN CORPUSCULAR VOLUME 91 fL (79.0-98.0); MONOCYTES # (AUTO) 0.7 K/uL (0.0-1.0); MONOCYTES % (AUTO) 7.1 % (1.7-9.3); NEUTROPHILS # (AUTO) 5.1 K/uL (1.8-7.7); NEUTROPHILS % (AUTO) 54.7 % (40.0-70.0); PLATELET COUNT (AUTO) 273 K/uL (130-430); RED BLOOD CELL COUNT(AUTO) 3.32 MIL/uL (4.2-6.2); RED CELL DISTRIBUTION WIDTH 13.7 % (9.0-15.0); WHITE BLOOD COUNT (AUTO) 9.3 K/uL (4.8-10.8)
[2021-06-28] MEDS ORDERED: PRED20TA PO (05:40)
[2021-06-28] MEDS ORDERED: FAMO40TA71 PO (05:40)
[2021-06-28] MEDS ORDERED: LORA10TA7 PO (05:40)
== END 2021-06-28 05:53 | disposition home or self-care (01) ==
LOC: SED 01:18
DX: T78.40XA Allergy, unspecified, initial encounter (principal); J45.909 Unspecified asthma, uncomplicated; E11.9 Type 2 diabetes mellitus without complications; I10 Essential (primary) hypertension; Z88.8 Allergy status to other drugs, medicaments and biological substances; Z79.82 Long term (current) use of aspirin; Z79.899 Other long term (current) drug therapy; X58.XXXA Exposure to other specified factors, initial encounter
CPT/HCPCS: 36415; 71045; 80053; 85025; 85651; 93005; 96374; 96375; 99285; J0780; J1100; J1200; J2270; J3490

== ENCOUNTER 2021-12-05 09:23 | Emergency (ER) | payer OTHER, MEDICAID ==
[~2021-12-05] VITALS: Ht 154.9 cm; Wt 72.6 kg
[~2021-12-05 09:23] MED LIST changes: -ARIP10TA9 PO; -BUSP10TA3 PO; -ESCI10TA PO; +FURO-150 PO; -GLIP10TA21 PO; +INSU100V9 SQ; -LOSA25TA3 PO; +NOVOLIN SQ; -RANI-362 PO; +SEMA0.25 SQ; +SPIR25TA PO; +VORT20TA PO
[2021-12-05 09:26] VITALS: BP_SYST 152
[2021-12-05] MEDS ORDERED: HALOPERIDOL LACTATE 5 MG/ML VIAL IM ONE (10:00)
[2021-12-05 12:41] LABS: BASOPHILS % (AUTO) 0.2 % (0.0-2.0); EOSINOPHILS # (AUTO) 0.2 K/uL (0.0-0.4); EOSINOPHILS % (AUTO) 1.8 % (0.0-4.0); HEMATOCRIT 33.1 % (36-48); LYMPHOCYTES # (AUTO) 1.3 K/uL (1.0-5.5); LYMPHOCYTES % (AUTO) 14.2 % (20.5-51.5); MEAN CORPUSCULAR HEMOGLOBIN 29 pg (27-31); MEAN CORPUSCULAR HGB CONC 33 % (32-36); MEAN CORPUSCULAR VOLUME 87 fL (79.0-98.0); MONOCYTES # (AUTO) 0.6 K/uL (0.0-1.0); MONOCYTES % (AUTO) 6.5 % (1.7-9.3); NEUTROPHILS # (AUTO) 6.8 K/uL (1.8-7.7); NEUTROPHILS % (AUTO) 77.3 % (40.0-70.0); PLATELET COUNT (AUTO) 314 K/uL (130-430); RED BLOOD CELL COUNT(AUTO) 3.81 MIL/uL (4.2-6.2); RED CELL DISTRIBUTION WIDTH 13.7 % (9.0-15.0); WHITE BLOOD COUNT (AUTO) 8.9 K/uL (4.8-10.8)
[2021-12-05 13:10] LABS: CALCIUM 9.2 mg/dL (8.4-11.0); CREATININE 1.06 mg/dL (0.55-1.30); POTASSIUM 3.5 mmol/L (3.5-5.1)
[2021-12-05 13:21] LABS: ALBUMIN 3.1 g/dL (3.4-4.8); TOTAL BILIRUBIN 0.2 mg/dL (0.0-1.0)
[2021-12-05 14:11] LABS: BILIRUBIN,URINE NEGATIVE (NEGATIVE); CLARITY/URINE CLEAR (CLEAR); COLOR,URINE YELLOW (YELLOW); GLUCOSE,URINE TRACE (NEGATIVE); KETONES,URINE NEGATIVE (NEGATIVE); LEUKOCYTE ESTERASE ,URINE NEGATIVE (NEGATIVE); NITRITE, URINE NEGATIVE (NEGATIVE); PH,URINE 5.5 (5.0-8.0); PROTEIN URINE 1+ (NEGATIVE); UROBILINOGEN,URINE 0.2 (0.2-1.0)
[2021-12-05 14:19] LABS: BLOOD, URINE TRACE (NEGATIVE)
[2021-12-05 14:30] LABS: BACTERIA,URINE RARE /HPF (None Seen); MUCUS,URINE 1+ /LPF (None Seen); RBC,URINE 0-3 /HPF (0-3); WBC,URINE 0-3 /HPF (0-3)
[2021-12-05 14:49] VITALS: BP_SYST 121
== END 2021-12-05 14:53 | disposition home or self-care (01) ==
LOC: SED 09:23
DX: R10.84 Generalized abdominal pain (principal); R11.2 Nausea with vomiting, unspecified; R74.8 Abnormal levels of other serum enzymes; J45.909 Unspecified asthma, uncomplicated; E11.9 Type 2 diabetes mellitus without complications; I10 Essential (primary) hypertension; K21.9 Gastro-esophageal reflux disease without esophagitis; Z88.8 Allergy status to other drugs, medicaments and biological substances; Z79.899 Other long term (current) drug therapy
CPT/HCPCS: 36415; 80053; 81000; 83690; 84484; 85025; 93005; 96372; 99284; J1630

== ENCOUNTER 2021-12-24 05:20 | Inpatient (IN) | payer OTHER, MEDICAID ==
[~2021-12-24] VITALS: Ht 154.9 cm; Wt 73.0 kg
[2021-12-24 05:20] VITALS: BP_SYST 122
[2021-12-24] MEDS ORDERED: MORPHINE 2 MG/ML INJ. SYRINGE IVP ONE (05:30)
[2021-12-24] MEDS ORDERED: ONDANSETRON HCL 4 MG/2 ML VIAL IVP ONE ×2 (05:30→07:45)
[2021-12-24] MEDS ORDERED: ONDANSETRON HCL 4 MG/2 ML VIAL ONE (05:50)
[2021-12-24 06:32] LABS: BASOPHILS # (AUTO) 0.1 K/uL (0.0-0.2); BASOPHILS % (AUTO) 1.7 % (0.0-2.0); EOSINOPHILS # (AUTO) 0.9 K/uL (0.0-0.4); EOSINOPHILS % (AUTO) 10.1 % (0.0-4.0); HEMOGLOBIN 10.1 g/dL (12.0-16.0); LYMPHOCYTES # (AUTO) 2.6 K/uL (1.0-5.5); LYMPHOCYTES % (AUTO) 30.9 % (20.5-51.5); MEAN CORPUSCULAR HEMOGLOBIN 29 pg (27-31); MEAN CORPUSCULAR HGB CONC 33 % (32-36); MEAN CORPUSCULAR VOLUME 88 fL (79.0-98.0); MONOCYTES # (AUTO) 0.5 K/uL (0.0-1.0); MONOCYTES % (AUTO) 5.9 % (1.7-9.3); NEUTROPHILS # (AUTO) 4.3 K/uL (1.8-7.7); NEUTROPHILS % (AUTO) 51.4 % (40.0-70.0); PLATELET COUNT (AUTO) 379 K/uL (130-430); RED BLOOD CELL COUNT(AUTO) 3.53 MIL/uL (4.2-6.2); RED CELL DISTRIBUTION WIDTH 14.1 % (9.0-15.0); WHITE BLOOD COUNT (AUTO) 8.5 K/uL (4.8-10.8)
[2021-12-24 06:54] LABS: CALCIUM 8.7 mg/dL (8.4-11.0); CREATININE 1.24 mg/dL (0.55-1.30); POTASSIUM 3.7 mmol/L (3.5-5.1)
[2021-12-24 06:58] LABS: ALBUMIN 2.9 g/dL (3.4-4.8); TOTAL BILIRUBIN 0.2 mg/dL (0.0-1.0)
[2021-12-24 07:09] LABS: INR 0.9 (0.8-1.2); PROTHROMBIN TIME 9.9 SECS (9.5-12.5)
[2021-12-24] MEDS ORDERED: PIOG45TA63 PO (07:39)
[2021-12-24] MEDS ORDERED: FERR220S6 PO (07:39)
[2021-12-24] MEDS ORDERED: CARV3.1246 PO (07:39)
[2021-12-24] MEDS ORDERED: GLUC-119 PO (07:39)
[2021-12-24] MEDS ORDERED: DIGO250T PO (07:39)
[2021-12-24] MEDS ORDERED: ERGO1250 PO (07:39)
[2021-12-24] MEDS ORDERED: NACL 0.9% 1,000 ML IV ONE (07:45)
[2021-12-24] MEDS ORDERED: MAG HYDROX/AL HYDROX/SIMETH 30 ML, LIDOCAINE VISCOUS 2% 15ML (PO) 15 ML, DICYCLOMINE HC... PO ONE ×3 (08:15)
[2021-12-24 09:23] LABS: BILIRUBIN,URINE NEGATIVE (NEGATIVE); BLOOD, URINE NEGATIVE (NEGATIVE); CLARITY/URINE CLEAR (CLEAR); COLOR,URINE YELLOW (YELLOW); GLUCOSE,URINE NEGATIVE (NEGATIVE); KETONES,URINE NEGATIVE (NEGATIVE); LEUKOCYTE ESTERASE ,URINE NEGATIVE (NEGATIVE); NITRITE, URINE NEGATIVE (NEGATIVE); PROTEIN URINE TRACE (NEGATIVE); UROBILINOGEN,URINE 0.2 (0.2-1.0)
[2021-12-24] MEDS ORDERED: LOPERAMIDE HCL 2 MG CAPSULE PO ONE ×2 (09:30→17:00)
[2021-12-24 11:04] VITALS: BP_SYST 122
[2021-12-24] MEDS ORDERED: ATORVASTATIN 20 MG TABLET PO ONE (12:45)
[2021-12-24] MEDS ORDERED: CARVEDILOL 3.125 MG TABLET (COREG) PO ONE (12:45)
[2021-12-24] MEDS ORDERED: ASPIRIN 81 MG TAB.CHEW PO ONE (12:45)
[2021-12-24] MEDS ORDERED: FUROSEMIDE 20 MG TABLET PO ONE (13:00)
[2021-12-24] MEDS ORDERED: DIGOXIN 0.25 MG TABLET PO ONE (13:00)
[2021-12-24] MEDS ORDERED: GABAPENTIN 300 MG CAPSULE PO ONE (13:00)
[2021-12-24] MEDS: GABAPENTIN 300 MG CAPSULE PO SCH ×2 (14:59→20:55)
[2021-12-24] MEDS ORDERED: LOPERAMIDE HCL 2 MG CAPSULE PO PRN (17:00)
[2021-12-24] MEDS ORDERED: INSULIN REGULAR, HUMAN 100 UNITS/ML, 10 ML VIAL (humuLIN R) SUBCUT PRN (17:15)
[2021-12-24] MEDS ORDERED: ONDANSETRON HCL 4 MG/2 ML VIAL IVP PRN (17:15)
[2021-12-24] MEDS ORDERED: DEXTROSE 50% JECT 50 ML DISP.SYRIN IVP PRN (17:15)
[2021-12-24] MEDS ORDERED: NALOXONE HCL 0.4 MG/ML AMP (NARCAN) IVP PRN ×2 (17:30)
[2021-12-24] MEDS ORDERED: MAG-AL HYDROX/SIMETH 30 ML UDC PO PRN (17:30)
[2021-12-24] MEDS ORDERED: PANTOPRAZOLE SODIUM 40 MG/VIAL (PROTONIX) IVP ONE (17:30)
[2021-12-24] MEDS ORDERED: ACETAMINOPHEN 325 MG TABLET PO PRN (17:30)
[2021-12-24] MEDS ORDERED: HYDROmorphone 1 MG/ML INJ. CARTRIDGE IVP PRN ×2 (17:30)
[2021-12-24 17:33] VITALS: BP_SYST 133
[2021-12-24] MEDS: LR 500 ML IV SCH ×2 (17:37→20:53)
[2021-12-24 18:49] LABS: METHAMPHETAMINES SCREEN,URINE POSITIVE (NEG <=500); URINE AMPHETAMINE POSITIVE (NEG <=500)
[2021-12-24 18:50] LABS: BARBITURATE, URINE NEGATIVE (NEG <=200); BENZODIAZEPINE, URINE NEGATIVE (NEG <=150); CANNABINOID, URINE NEGATIVE (NEG <=50); COCAINE, URINE NEGATIVE (NEG <=150); OPIATE, URINE POSITIVE (NEG <=100); PHENCYCLIDINE SCREEN,URINE NEGATIVE (NEG <=25); UR TRICYCLIC ANTIDEPRESSANTS NEGATIVE (NEG <=300); URINE METHADONE NEGATIVE (NEG <=200); URINE OXYCODONE SCREEN NEGATIVE (NEG <=100); URINE PROPOXYPHENE SCREEN NEGATIVE (NEG <=300)
[2021-12-24] MEDS: PANTOPRAZOLE SODIUM 40 MG/VIAL (PROTONIX) IVP SCH (20:54)
[2021-12-24] MEDS: FUROSEMIDE 20 MG TABLET PO SCH (20:54)
[2021-12-24] MEDS: SPIRONOLACTONE 25 MG TABLET (ALDACTONE) PO SCH (20:55)
[2021-12-25 01:18] VITALS: BP_SYST 122
[2021-12-25] MEDS: LR 500 ML IV SCH ×4 (02:06→15:55)
[2021-12-25] MEDS ORDERED: LEVOTHYROXINE SODIUM 0.025 MG TABLET PO SCH (07:00)
[2021-12-25 08:00] VITALS: BP_SYST 111
[2021-12-25 08:07] LABS: BASOPHILS # (AUTO) 0.1 K/uL (0.0-0.2); BASOPHILS % (AUTO) 0.9 % (0.0-2.0); EOSINOPHILS # (AUTO) 1.7 K/uL (0.0-0.4); EOSINOPHILS % (AUTO) 18.6 % (0.0-4.0); HEMATOCRIT 29.6 % (36-48); HEMOGLOBIN 9.7 g/dL (12.0-16.0); LYMPHOCYTES % (AUTO) 33.2 % (20.5-51.5); MEAN CORPUSCULAR HEMOGLOBIN 29 pg (27-31); MEAN CORPUSCULAR HGB CONC 33 % (32-36); MEAN CORPUSCULAR VOLUME 88 fL (79.0-98.0); MONOCYTES # (AUTO) 0.5 K/uL (0.0-1.0); MONOCYTES % (AUTO) 5.9 % (1.7-9.3); NEUTROPHILS # (AUTO) 3.8 K/uL (1.8-7.7); NEUTROPHILS % (AUTO) 41.4 % (40.0-70.0); PLATELET COUNT (AUTO) 342 K/uL (130-430); RED BLOOD CELL COUNT(AUTO) 3.37 MIL/uL (4.2-6.2); RED CELL DISTRIBUTION WIDTH 14.1 % (9.0-15.0); WHITE BLOOD COUNT (AUTO) 9.1 K/uL (4.8-10.8)
[2021-12-25 08:28] LABS: ALBUMIN 2.6 g/dL (3.4-4.8); CREATININE 1.17 mg/dL (0.55-1.30); PHOSPHORUS 3.2 mg/dL (2.7-4.5); POTASSIUM 4.5 mmol/L (3.5-5.1); TOTAL BILIRUBIN 0.1 mg/dL (0.0-1.0)
[2021-12-25] MEDS ORDERED: ASPIRIN 81 MG TAB.CHEW PO SCH (09:00)
[2021-12-25] MEDS ORDERED: CARVEDILOL 3.125 MG TABLET (COREG) PO SCH (09:00)
[2021-12-25] MEDS ORDERED: PIOGLITAZONE HCL 15 MG TABLET PO SCH (09:00)
[2021-12-25] MEDS ORDERED: DIGOXIN 0.25 MG TABLET PO SCH (09:00)
[2021-12-25] MEDS ORDERED: ATORVASTATIN 20 MG TABLET PO SCH (09:00)
[2021-12-25] MEDS: PANTOPRAZOLE SODIUM 40 MG/VIAL (PROTONIX) IVP SCH (10:46)
[2021-12-25] MEDS: SPIRONOLACTONE 25 MG TABLET (ALDACTONE) PO SCH (10:47)
[2021-12-25] MEDS: FUROSEMIDE 20 MG TABLET PO SCH (10:47)
[2021-12-25] MEDS: GABAPENTIN 300 MG CAPSULE PO SCH ×3 (10:49→15:54)
== END 2021-12-25 18:46 | disposition left against medical advice (07) | DRG 917 ==
LOC: SED 05:20 → SMU 10:21 → STU 17:25
PROVIDERS: ADMIT Internal Medicine; ATTEND Internal Medicine
DX: T43.621A Poisoning by amphetamines, accidental (unintentional), initial encounter (principal); K85.30 Drug induced acute pancreatitis without necrosis or infection; I47.1 Supraventricular tachycardia; I42.9 Cardiomyopathy, unspecified; E11.9 Type 2 diabetes mellitus without complications; I48.0 Paroxysmal atrial fibrillation; E78.5 Hyperlipidemia, unspecified; I11.0 Hypertensive heart disease with heart failure; Z20.822 Contact with and (suspected) exposure to COVID-19; I50.9 Heart failure, unspecified; F31.9 Bipolar disorder, unspecified; I25.2 Old myocardial infarction; Z90.49 Acquired absence of other specified parts of digestive tract; Z98.891 History of uterine scar from previous surgery; Y92.89 Other specified places as the place of occurrence of the external cause; Z79.82 Long term (current) use of aspirin; Z79.899 Other long term (current) drug therapy; Z91.041 Radiographic dye allergy status
CPT/HCPCS: 36415; 71045; 76376; 80053; 80061; 80162; 80307; 81003; 82150; 82962; 83036; 83605; 83690; 83735; 84100; 85025; 85610-TC; 85730-TC; 87040; 93005; 93306; 96374; 96375; 96376; 99285; C9113; G0378; J2001; J2270; J2405

== ENCOUNTER 2022-01-22 07:04 | Emergency (ER) | payer OTHER, MEDICAID ==
[~2022-01-22] VITALS: Ht 152.4 cm; Wt 72.6 kg
[~2022-01-22 07:04] MED LIST changes: +CARV3.1246 PO; +DIGO250T PO; -DILT180C67 PO; -DIPH50CA38 PO; +ERGO1250 PO; +FERR220S6 PO; +GLUC-119 PO; +PIOG45TA63 PO
[2022-01-22 07:05] VITALS: BP_SYST 173
--- NOTE | 2022-01-22 07:05 | NUR ---
BROUGHT BACK TO BED #8 AND TRIAGED, REPORT GIVEN TO ALLA
--- NOTE | 2022-01-22 07:10 | NUR ---
PT CAME IN FROM HOME C/O REDNESS, PAIN AND SWELLING TO RIGHT MIDDLE FINGER AROUND NAIL BED. PT IS AMBULATORY, AAOX4, VSS
[2022-01-22] MEDS ORDERED: LIDOCAINE 1% 10 MG/ML, 20 ML MDV INJ ONE (07:30)
--- NOTE | 2022-01-22 07:30 | NUR ---
ER DR. FUNES AT THE BEDSIDE EXAMINING PT
[2022-01-22] MEDS ORDERED: LIDOCAINE 1%, 20 ML MDV 20 ML ONE (07:32)
[2022-01-22] MEDS ORDERED: BACITRACIN 1 GM OINT TP ONE (08:00)
[2022-01-22 08:01] VITALS: BP_SYST 173
--- NOTE | 2022-01-22 08:02 | NUR ---
Patient given written and verbal discharge instructions and verbalizes understanding. ER MD discussed with patient the results and treatment provided. Patient in stable condition. ID arm band removed. NO Rx given. Patient educated on pain management and to follow up with PMD. Pain Scale 0/10. Opportunity for questions provided and answered. Medication side effect fact sheet provided.
== END 2022-01-22 08:01 | disposition home or self-care (01) ==
LOC: SED 07:04
DX: L03.011 Cellulitis of right finger (principal); E11.9 Type 2 diabetes mellitus without complications; I10 Essential (primary) hypertension; J45.909 Unspecified asthma, uncomplicated; Z79.899 Other long term (current) drug therapy; Z79.4 Long term (current) use of insulin
CPT/HCPCS: 10060; 99282; J2001; 99283